=== PATIENT | female | born 1940 | race Caucasian/White ===

== ENCOUNTER → 2016-05-02 | Outpatient (CLI) | payer MEDICARE, OTHER ==
[~2016-05-02] MED LIST: ALDACTONE25 MG PO; ANUSOL SUPP EAC12 EA PR; ATROVENT HFA12.9 GM INH; BENZONATATE200 MG PO; BUMETANIDE2 MG PO; CALCITONIN-SAL3.7 ML; COLACE 100MG C100 MG PO; COREG3.125 MG PO; COUMADIN1 MG PO; COUMADIN6 MG PO; COZAAR25 MG PO; CYCLOBENZAPRINE5 MG PO; ENTRESTO PO; FERROUS SULFAT325 MG PO; FISH OIL 1,0001 EAC1 PO; FLONASE 0.05% N16 GM; IMDUR ER TAB 3030 MG PO; KLOR-CON 1010 MEQ PO; LACTINEX PACKET1 PKT PO; LANOXIN TAB0.125 MG PO; MAG-OX 400 TAB400 MG PO; MIRALAX17 GM PO; MYCOSTATIN100000 UTS PO; NEOMYCIN-POLYMY10 ML OT; NEURONTIN300 MG PO; NITROSTAT0.4 MG SL; NIZORAL 2% CREA15 GM EXT; NORCO 5-325 TA1 EACH PO; OMNICEF 300 MG300 MG PO; PROTONIX 40 MG40 M1 PO; ROBITUSSIN100 MG/5 M PO; SYNTHROID75 MCG PO; TOPROL XL25 MG PO; VENTOLIN/PROVE0.5 ML NEB; VITAMIN B-1000 MCG/M IM; VITAMIN D5000 UNIT PO; ZOFRAN4 MG PO; ZYLOPRIM300 MG PO
== END ==
LOC: HEART 5 13:06
DX: I50.22 Chronic systolic (congestive) heart failure (principal); I25.5 Ischemic cardiomyopathy
CPT/HCPCS: 93306

== ENCOUNTER 2020-03-10 19:56 | Inpatient (IN) | payer MEDICARE, OTHER ==
[~2020-03-10] VITALS: Ht 152.4 cm; Wt 74.8 kg
[~2020-03-10 19:56] MED LIST changes: +AFRIN15 M1; +ASPIRIN EC81 MG PO; -BUMETANIDE2 MG PO; +CLARITIN10 MG PO; +CLEOCIN HCL150 MG PO; +COMBIVENT RESPIM4 GM INH; +COUMADIN5 MG PO; +EAR DROPS15 ML EARBOTH; +ECOTRIN81 MG PO; +FERROUS GLUCON324 M1 PO; +HUMIBID LA TAB600 MG PO; +KEFLEX CAP 500500 MG PO; -LANOXIN TAB0.125 MG PO; +LANOXIN125 MCG PO; +MONTELUKAST SOD10 MG PO; +PREDNISONE20 MG PO; +PRINIVIL10 MG PO; +PROTONIX40 MG PO; -VENTOLIN/PROVE0.5 ML NEB; +VOLTAREN GEL 1% TOP; +WARFARIN SODIUM4 MG PO; +WARFARIN SODIUM5 MG PO; +WARFARIN SODIUM6 MG PO; -ZOFRAN4 MG PO
[2020-03-10 20:39] LABS: HEMOGLOBIN 9.7 gm/dl (12.3-15.3); RED BLOOD COUNT 3.29 M/UL (4.00-5.10); WHITE BLOOD COUNT 8.1 K/UL (4.5-11.0)
[2020-03-10 20:48] LABS: BUN/CREATININE RATIO 52 (0-10)
[2020-03-11 00:43] LABS: HEMOGLOBIN 8.6 gm/dl (12.3-15.3); WHITE BLOOD COUNT 9.1 K/UL (4.5-11.0)
[2020-03-11 00:47] LABS: RED BLOOD COUNT 2.82 M/UL (4.00-5.10)
[2020-03-11] MEDS ORDERED: ZOFRAN4 MG PO (01:53)
[2020-03-11 09:25] LABS: RED BLOOD COUNT 2.3 M/UL (4.00-5.10); WHITE BLOOD COUNT 5.4 K/UL (4.5-11.0)
[2020-03-11 09:27] LABS: HEMOGLOBIN 6.9 gm/dl (12.3-15.3)
[2020-03-11 11:46] LABS: BUN/CREATININE RATIO 65 (0-10)
[2020-03-11] MEDS ORDERED: BUMETANIDE1 MG PO (15:21)
[2020-03-11] MEDS ORDERED: ALDACTONE 25MG25 MG PO (17:20)
[2020-03-11] MEDS ORDERED: CLARITIN10 MG PO (17:24)
[2020-03-11] MEDS ORDERED: GUAIFENESIN400 MG PO (17:32)
[2020-03-11 21:03] LABS: HEMOGLOBIN 8.4 gm/dl (12.3-15.3)
[2020-03-12 22:22] LABS: RED BLOOD COUNT 3.02 M/UL (4.00-5.10); WHITE BLOOD COUNT 9.4 K/UL (4.5-11.0)
[2020-03-13 03:06] LABS: BUN/CREATININE RATIO 49 (0-10)
[2020-03-13 03:19] LABS: HEMOGLOBIN 7.5 gm/dl (12.3-15.3); RED BLOOD COUNT 2.59 M/UL (4.00-5.10); WHITE BLOOD COUNT 7.6 K/UL (4.5-11.0)
[2020-03-13 12:22] LABS: HEMOGLOBIN 8.1 gm/dl (12.3-15.3)
[2020-03-13 19:46] LABS: HEMOGLOBIN 7.3 gm/dl (12.3-15.3)
[2020-03-14 09:55] LABS: HEMOGLOBIN 8.2 gm/dl (12.3-15.3)
[2020-03-14 16:56] LABS: HEMOGLOBIN 7.4 gm/dl (12.3-15.3)
[2020-03-15 02:45] LABS: HEMOGLOBIN 8.6 gm/dl (12.3-15.3)
[2020-03-15 02:46] LABS: RED BLOOD COUNT 2.91 M/UL (4.00-5.10); WHITE BLOOD COUNT 13.5 K/UL (4.5-11.0)
[2020-03-15 03:23] LABS: BUN/CREATININE RATIO 48 (0-10)
[2020-03-15 21:48] LABS: HEMOGLOBIN 6.9 gm/dl (12.3-15.3)
[2020-03-16 05:55] LABS: HEMOGLOBIN 7.2 gm/dl (12.3-15.3)
[2020-03-16 05:59] LABS: RED BLOOD COUNT 2.37 M/UL (4.00-5.10); WHITE BLOOD COUNT 8.7 K/UL (4.5-11.0)
[2020-03-16 06:07] LABS: BUN/CREATININE RATIO 39 (0-10)
[2020-03-17 02:31] LABS: HEMOGLOBIN 8.3 gm/dl (12.3-15.3)
[2020-03-17 02:35] LABS: RED BLOOD COUNT 2.75 M/UL (4.00-5.10)
[2020-03-17 02:56] LABS: BUN/CREATININE RATIO 42 (0-10)
[2020-03-18 03:08] LABS: HEMOGLOBIN 7.5 gm/dl (12.3-15.3); RED BLOOD COUNT 2.45 M/UL (4.00-5.10); WHITE BLOOD COUNT 7.9 K/UL (4.5-11.0)
[2020-03-18 03:24] LABS: BUN/CREATININE RATIO 38 (0-10)
[2020-03-19 02:29] LABS: HEMOGLOBIN 7.8 gm/dl (12.3-15.3); RED BLOOD COUNT 2.59 M/UL (4.00-5.10); WHITE BLOOD COUNT 8.2 K/UL (4.5-11.0)
[2020-03-20 02:51] LABS: HEMOGLOBIN 7.5 gm/dl (12.3-15.3); RED BLOOD COUNT 2.5 M/UL (4.00-5.10); WHITE BLOOD COUNT 6.9 K/UL (4.5-11.0)
[2020-03-21 12:00] LABS: RED BLOOD COUNT 2.65 M/UL (4.00-5.10); WHITE BLOOD COUNT 7.5 K/UL (4.5-11.0)
[2020-03-22 04:41] LABS: HEMOGLOBIN 7.3 gm/dl (12.3-15.3); RED BLOOD COUNT 2.44 M/UL (4.00-5.10); WHITE BLOOD COUNT 8.7 K/UL (4.5-11.0)
[2020-03-22 05:04] LABS: BUN/CREATININE RATIO 24 (0-10)
[2020-03-23 03:02] LABS: BUN/CREATININE RATIO 33 (0-10)
[2020-03-24 06:16] LABS: HEMOGLOBIN 8.1 gm/dl (12.3-15.3); RED BLOOD COUNT 2.68 M/UL (4.00-5.10); WHITE BLOOD COUNT 7.3 K/UL (4.5-11.0)
[2020-03-24 06:44] LABS: BUN/CREATININE RATIO 30 (0-10)
[2020-03-24] MEDS ORDERED: MONTELUKAST SOD10 MG PO (08:57)
[2020-03-24] MEDS ORDERED: ANUSOL HC SUPP1 SUPP PR (08:57)
[2020-03-24] MEDS ORDERED: MAGIC MOUTHWASH PO (08:59)
[2020-03-25 04:09] LABS: HEMOGLOBIN 8.2 gm/dl (12.3-15.3); RED BLOOD COUNT 2.73 M/UL (4.00-5.10); WHITE BLOOD COUNT 8.9 K/UL (4.5-11.0)
[2020-03-25 04:41] LABS: BUN/CREATININE RATIO 45 (0-10)
[2020-03-26 05:14] LABS: HEMOGLOBIN 7.8 gm/dl (12.3-15.3); RED BLOOD COUNT 2.61 M/UL (4.00-5.10)
[2020-03-26 05:21] LABS: WHITE BLOOD COUNT 6.5 K/UL (4.5-11.0)
[2020-03-26 05:40] LABS: BUN/CREATININE RATIO 46 (0-10)
[2020-03-27] MEDS ORDERED: NASA MIST SALI177 ML (13:36)
[2020-03-27] MEDS ORDERED: BENZONATATE100 MG PO (13:36)
== END 2020-03-27 21:20 | DRG 377 ==
LOC: ER1 19:56 → MED SURG 4 03-11 01:33 → PROG CARE 03-11 01:33 → CDU 03-11 01:33 → PROG CARE 03-12 13:57 → MED SURG 4 03-20 14:02
PROVIDERS: Internal Medicine; Internal Medicine Infectious Disease; Physician Assistant; ADMIT Internal Medicine
PROC: 30233N1 Transfusion of Nonautologous Red Blood Cells into Peripheral Vein, Percutaneous Approach (ICD-10-PCS; 2020-03-11)
PROC: 30233K1 Transfusion of Nonautologous Frozen Plasma into Peripheral Vein, Percutaneous Approach (ICD-10-PCS; 2020-03-12)
PROC: 30233N1 Transfusion of Nonautologous Red Blood Cells into Peripheral Vein, Percutaneous Approach (ICD-10-PCS; 2020-03-12)
PROC: 30233K1 Transfusion of Nonautologous Frozen Plasma into Peripheral Vein, Percutaneous Approach (ICD-10-PCS; 2020-03-13)
PROC: 30233N1 Transfusion of Nonautologous Red Blood Cells into Peripheral Vein, Percutaneous Approach (ICD-10-PCS; 2020-03-13)
PROC: 30233N1 Transfusion of Nonautologous Red Blood Cells into Peripheral Vein, Percutaneous Approach (ICD-10-PCS; 2020-03-14)
PROC: 30233N1 Transfusion of Nonautologous Red Blood Cells into Peripheral Vein, Percutaneous Approach (ICD-10-PCS; 2020-03-16)
PROC: B24BZZZ Ultrasonography of Heart with Aorta (ICD-10-PCS; principal; 2020-03-17)
DX: K57.31 Diverticulosis of large intestine without perforation or abscess with bleeding (principal); I50.23 Acute on chronic systolic (congestive) heart failure; D62 Acute posthemorrhagic anemia; J96.11 Chronic respiratory failure with hypoxia; Z20.822 Contact with and (suspected) exposure to COVID-19; I11.0 Hypertensive heart disease with heart failure; R55 Syncope and collapse; I25.119 Atherosclerotic heart disease of native coronary artery with unspecified angina pectoris; R07.89 Other chest pain; I95.9 Hypotension, unspecified; E86.1 Hypovolemia; Z66 Do not resuscitate; I25.5 Ischemic cardiomyopathy; I48.0 Paroxysmal atrial fibrillation; E78.5 Hyperlipidemia, unspecified; E03.9 Hypothyroidism, unspecified; K21.9 Gastro-esophageal reflux disease without esophagitis; F41.9 Anxiety disorder, unspecified; E66.01 Morbid (severe) obesity due to excess calories; J30.9 Allergic rhinitis, unspecified; D50.9 Iron deficiency anemia, unspecified; Z95.5 Presence of coronary angioplasty implant and graft; Z90.49 Acquired absence of other specified parts of digestive tract; Z90.710 Acquired absence of both cervix and uterus; Z95.2 Presence of prosthetic heart valve; Z95.810 Presence of automatic (implantable) cardiac defibrillator; Z88.0 Allergy status to penicillin; Z88.8 Allergy status to other drugs, medicaments and biological substances; Z82.49 Family history of ischemic heart disease and other diseases of the circulatory system; I25.2 Old myocardial infarction; Z79.01 Long term (current) use of anticoagulants; Z79.890 Hormone replacement therapy; Z79.899 Other long term (current) drug therapy; Z68.32 Body mass index [BMI] 32.0-32.9, adult
CPT/HCPCS: 36415; 36430; 70486; 71045; 74230; 80048; 80053; 80162; 81001; 82272; 82550; 82553; 83605; 83735; 83874; 83880; 84484; 85014; 85018; 85025; 85027; 85610; 85730; 86850; 86900; 86901; 86920; 86927; 87086; 92610; 92611-GN; 93005; 94640; 94664; 94760; 96372; 96374; 96375; 96376; 97110; 97162; 97166; 97530; 97530-GP-CQ; 99285; C9113; G0378; J1756; J1940; J2405; J3430; J7050; P9016; P9017; U0002

== ENCOUNTER 2020-04-17 12:36 | Emergency (ER) | payer MEDICARE, OTHER ==
[~2020-04-17 12:36] MED LIST changes: +ALDACTONE 25MG25 MG PO; +ANUSOL HC SUPP1 SUPP PR; +BENZONATATE100 MG PO; +BUMETANIDE1 MG PO; +GUAIFENESIN400 MG PO; +MAGIC MOUTHWASH PO; +NASA MIST SALI177 ML; +ZOFRAN4 MG PO
[2020-04-17 15:01] LABS: HEMOGLOBIN 8.9 gm/dl (12.3-15.3); RED BLOOD COUNT 3.03 M/UL (4.00-5.10); WHITE BLOOD COUNT 4.9 K/UL (4.5-11.0)
[2020-04-17 15:17] LABS: BUN/CREATININE RATIO 48 (0-10)
== END 2020-04-17 18:33 | disposition home or self-care (01) ==
LOC: ER1 12:36
PROVIDERS: Physician Assistant
DX: K92.2 Gastrointestinal hemorrhage, unspecified (principal); R60.0 Localized edema; I10 Essential (primary) hypertension; Z88.0 Allergy status to penicillin; Z91.040 Latex allergy status; Z95.1 Presence of aortocoronary bypass graft; Z90.49 Acquired absence of other specified parts of digestive tract
CPT/HCPCS: 71045; 80053; 81001; 82270; 82550; 82553; 83874; 83880; 84484; 85025; 85610; 85730; 93005; 94664; 99284

== ENCOUNTER 2020-05-23 08:06 | Emergency (ER) | payer MEDICARE, OTHER ==
[~2020-05-23] VITALS: Ht 162.6 cm; Wt 73.5 kg
[2020-05-23 10:08] LABS: HEMOGLOBIN 10.9 gm/dl (12.3-15.3); RED BLOOD COUNT 3.7 M/UL (4.00-5.10); WHITE BLOOD COUNT 5.7 K/UL (4.5-11.0)
[2020-05-23 10:30] LABS: BUN/CREATININE RATIO 50 (0-10)
[2020-05-23] MEDS ORDERED: LISINOPRIL2.5 MG PO (12:14)
[2020-05-23] MEDS ORDERED: JANTOVEN5 MG PO (12:30)
[2020-05-23] MEDS ORDERED: JANTOVEN6 MG PO (12:31)
[2020-05-23] MEDS ORDERED: NYSTATIN15 GM TP (14:14)
[2020-05-23] MEDS ORDERED: ALDACTONE 25MG25 MG PO (14:15)
[2020-05-23] MEDS ORDERED: PROVENTIL HFA6.7 GM INH (15:19)
[2020-05-23 16:36] LABS: HEMOGLOBIN 9.9 gm/dl (12.3-15.3); RED BLOOD COUNT 3.35 M/UL (4.00-5.10); WHITE BLOOD COUNT 4.9 K/UL (4.5-11.0)
== END 2020-05-24 04:06 | disposition home or self-care (01) ==
LOC: ER1 08:06
PROVIDERS: Student in an Organized Health Care Education/Training Program
DX: D64.9 Anemia, unspecified (principal); N39.0 Urinary tract infection, site not specified; K62.5 Hemorrhage of anus and rectum; I50.9 Heart failure, unspecified; Z20.822 Contact with and (suspected) exposure to COVID-19; Z95.1 Presence of aortocoronary bypass graft; Z90.710 Acquired absence of both cervix and uterus; Z88.0 Allergy status to penicillin
CPT/HCPCS: 0240U; 71045; 80053; 81001; 82550; 82553; 83605; 83690; 83735; 83874; 83880; 84100; 84484; 85018; 85025; 85610; 85652; 85730; 86140; 86850; 86900; 86901; 87040; 94664; 99285; J0696; J2270; J2405

== ENCOUNTER 2020-09-19 18:20 | Emergency (ER) | payer MEDICARE, OTHER ==
[~2020-09-19 18:20] MED LIST changes: +JANTOVEN5 MG PO; +JANTOVEN6 MG PO; +LISINOPRIL2.5 MG PO; +NYSTATIN15 GM TP; +PROVENTIL HFA6.7 GM INH
[2020-09-19 20:05] LABS: HEMOGLOBIN 10.9 gm/dl (12.3-15.3); RED BLOOD COUNT 3.82 M/UL (4.00-5.10); WHITE BLOOD COUNT 8.3 K/UL (4.5-11.0)
[2020-09-19 20:10] LABS: BUN/CREATININE RATIO 36 (0-10)
[2020-09-20] MEDS ORDERED: DELSYM30 MG/5 ML PO (00:24)
[2020-09-20] MEDS ORDERED: ZYRTEC10 MG PO (00:24)
[2020-09-20] MEDS ORDERED: Voltaren Gel 1 % TOP (00:24)
== END 2020-09-20 01:00 | disposition home or self-care (01) ==
LOC: ER1 18:20
PROVIDERS: Physician Assistant Medical
DX: S22.038A Other fracture of third thoracic vertebra, initial encounter for closed fracture (principal); I50.9 Heart failure, unspecified; D64.9 Anemia, unspecified; Z20.822 Contact with and (suspected) exposure to COVID-19; Z88.0 Allergy status to penicillin; Z88.5 Allergy status to narcotic agent; Z79.899 Other long term (current) drug therapy; X58.XXXA Exposure to other specified factors, initial encounter
CPT/HCPCS: 71045; 71250; 72072; 80053; 81001; 82550; 82553; 83874; 84484; 85025; 93005; 99284; U0002

== ENCOUNTER 2020-09-23 10:33 | Emergency (ER) | payer MEDICARE, OTHER ==
[~2020-09-23 10:33] MED LIST changes: +DELSYM30 MG/5 ML PO; +Voltaren Gel 1 % TOP; +ZYRTEC10 MG PO
[2020-09-23 11:33] LABS: HEMOGLOBIN 11.8 gm/dl (12.3-15.3); RED BLOOD COUNT 4.15 M/UL (4.00-5.10); WHITE BLOOD COUNT 6.9 K/UL (4.5-11.0)
[2020-09-23 11:49] LABS: BUN/CREATININE RATIO 47 (0-10)
[2020-09-23] MEDS ORDERED: LEVOFLOXACIN750 MG PO (16:21)
[2020-09-23] MEDS ORDERED: ZOFRAN ODT 4 MG4 MG PO (16:21)
[2020-09-23] MEDS ORDERED: FLAGYL500 MG PO (16:21)
[2020-09-23] MEDS ORDERED: BACTRIM DS TAB1 EACH PO (16:34)
[2020-09-23] MEDS ORDERED: BENTYL 10MG CAP10 MG PO (16:34)
== END 2020-09-23 17:50 | disposition home or self-care (01) ==
LOC: ER1 10:33
PROVIDERS: Emergency Medicine
DX: K52.9 Noninfective gastroenteritis and colitis, unspecified (principal); I11.0 Hypertensive heart disease with heart failure; I50.9 Heart failure, unspecified; J44.9 Chronic obstructive pulmonary disease, unspecified; Z20.822 Contact with and (suspected) exposure to COVID-19
CPT/HCPCS: 71045; 80053; 81001; 82550; 82553; 83605; 83690; 84484; 85025; 93005; 96374; 96375; 99285; J2270; J2405; U0002

== ENCOUNTER 2020-09-29 09:52 | Inpatient (IN) | payer MEDICARE, OTHER ==
[~2020-09-29] VITALS: Ht 162.6 cm; Wt 74.8 kg
[~2020-09-29 09:52] MED LIST changes: +BACTRIM DS TAB1 EACH PO; +BENTYL 10MG CAP10 MG PO; +FLAGYL500 MG PO; +LEVOFLOXACIN750 MG PO; +ZOFRAN ODT 4 MG4 MG PO
[2020-09-29 11:07] LABS: BUN/CREATININE RATIO 31 (0-10)
[2020-09-29 11:10] LABS: HEMOGLOBIN 12.1 gm/dl (12.3-15.3); RED BLOOD COUNT 4.16 M/UL (4.00-5.10); WHITE BLOOD COUNT 7.5 K/UL (4.5-11.0)
[2020-09-30 02:13] LABS: HEMOGLOBIN 11.8 gm/dl (12.3-15.3); RED BLOOD COUNT 3.98 M/UL (4.00-5.10)
[2020-09-30 02:36] LABS: BUN/CREATININE RATIO 39 (0-10)
[2020-10-01 10:08] LABS: BUN/CREATININE RATIO 43 (0-10)
[2020-10-01 12:12] LABS: HEMOGLOBIN 10.9 gm/dl (12.3-15.3); RED BLOOD COUNT 3.71 M/UL (4.00-5.10); WHITE BLOOD COUNT 4.5 K/UL (4.5-11.0)
[2020-10-02 06:23] LABS: RED BLOOD COUNT 3.72 M/UL (4.00-5.10); WHITE BLOOD COUNT 3.8 K/UL (4.5-11.0)
[2020-10-02 07:07] LABS: BUN/CREATININE RATIO 33 (0-10)
[2020-10-03 10:24] LABS: HEMOGLOBIN 12.5 gm/dl (12.3-15.3)
[2020-10-03 10:28] LABS: RED BLOOD COUNT 4.2 M/UL (4.00-5.10); WHITE BLOOD COUNT 4.8 K/UL (4.5-11.0)
[2020-10-03 10:42] LABS: BUN/CREATININE RATIO 28 (0-10)
[2020-10-04 05:13] LABS: HEMOGLOBIN 12.3 gm/dl (12.3-15.3); RED BLOOD COUNT 4.16 M/UL (4.00-5.10); WHITE BLOOD COUNT 3.8 K/UL (4.5-11.0)
[2020-10-04 05:46] LABS: BUN/CREATININE RATIO 30 (0-10)
[2020-10-04 09:41] LABS: HEMOGLOBIN 12.5 gm/dl (12.3-15.3); RED BLOOD COUNT 4.16 M/UL (4.00-5.10)
[2020-10-04 09:55] LABS: WHITE BLOOD COUNT 4.9 K/UL (4.5-11.0)
[2020-10-05 06:40] LABS: HEMOGLOBIN 12.9 gm/dl (12.3-15.3); RED BLOOD COUNT 4.31 M/UL (4.00-5.10)
[2020-10-05 07:16] LABS: BUN/CREATININE RATIO 40 (0-10)
[2020-10-06 07:11] LABS: HEMOGLOBIN 13.1 gm/dl (12.3-15.3); RED BLOOD COUNT 4.37 M/UL (4.00-5.10)
[2020-10-06 07:18] LABS: WHITE BLOOD COUNT 6.4 K/UL (4.5-11.0)
[2020-10-06 07:34] LABS: BUN/CREATININE RATIO 38 (0-10)
[2020-10-07 06:52] LABS: HEMOGLOBIN 12.8 gm/dl (12.3-15.3); RED BLOOD COUNT 4.32 M/UL (4.00-5.10); WHITE BLOOD COUNT 5.9 K/UL (4.5-11.0)
[2020-10-07 07:20] LABS: BUN/CREATININE RATIO 42 (0-10)
[2020-10-08 09:39] LABS: HEMOGLOBIN 12.9 gm/dl (12.3-15.3); RED BLOOD COUNT 4.31 M/UL (4.00-5.10)
[2020-10-08 09:40] LABS: WHITE BLOOD COUNT 9.2 K/UL (4.5-11.0)
[2020-10-08 10:11] LABS: BUN/CREATININE RATIO 49 (0-10)
--- NOTE | 2020-10-08 15:13 | NUR ---
TELEMETRY CALLED TO NOTIFY PATIENT HAD 8 BEAT RUN OFV-TACH PROVIDER NOTIFIED AND ORDERED EKG 12 LEAD, CARDIAC SCREEN, CMP, MAG AND PHOSPHOROUS LABS. WILL CONTINUE TO MONITOR.
[2020-10-08 16:42] LABS: BUN/CREATININE RATIO 48 (0-10)
[2020-10-09 09:36] LABS: RED BLOOD COUNT 4.06 M/UL (4.00-5.10); WHITE BLOOD COUNT 9.1 K/UL (4.5-11.0)
[2020-10-09 09:48] LABS: BUN/CREATININE RATIO 45 (0-10)
[2020-10-10 07:49] LABS: HEMOGLOBIN 12.9 gm/dl (12.3-15.3); RED BLOOD COUNT 4.34 M/UL (4.00-5.10); WHITE BLOOD COUNT 8.6 K/UL (4.5-11.0)
[2020-10-10 08:30] LABS: BUN/CREATININE RATIO 48 (0-10)
[2020-10-11 10:05] LABS: HEMOGLOBIN 12.6 gm/dl (12.3-15.3); RED BLOOD COUNT 4.23 M/UL (4.00-5.10); WHITE BLOOD COUNT 7.3 K/UL (4.5-11.0)
[2020-10-11 10:18] LABS: BUN/CREATININE RATIO 54 (0-10)
[2020-10-12 06:58] LABS: HEMOGLOBIN 12.5 gm/dl (12.3-15.3); RED BLOOD COUNT 4.22 M/UL (4.00-5.10)
[2020-10-12 07:24] LABS: BUN/CREATININE RATIO 47 (0-10)
[2020-10-13 06:48] LABS: HEMOGLOBIN 13.1 gm/dl (12.3-15.3); RED BLOOD COUNT 4.4 M/UL (4.00-5.10); WHITE BLOOD COUNT 7.9 K/UL (4.5-11.0)
[2020-10-13 07:14] LABS: BUN/CREATININE RATIO 53 (0-10)
[2020-10-14 10:18] LABS: HEMOGLOBIN 12.7 gm/dl (12.3-15.3); RED BLOOD COUNT 4.18 M/UL (4.00-5.10)
[2020-10-14 10:53] LABS: BUN/CREATININE RATIO 70 (0-10)
[2020-10-15 09:27] LABS: HEMOGLOBIN 11.4 gm/dl (12.3-15.3); RED BLOOD COUNT 3.93 M/UL (4.00-5.10); WHITE BLOOD COUNT 9.2 K/UL (4.5-11.0)
[2020-10-15 09:57] LABS: BUN/CREATININE RATIO 85 (0-10)
[2020-10-16 04:28] LABS: HEMOGLOBIN 11.1 gm/dl (12.3-15.3); RED BLOOD COUNT 3.75 M/UL (4.00-5.10)
[2020-10-16 04:36] LABS: WHITE BLOOD COUNT 6.8 K/UL (4.5-11.0)
[2020-10-16 04:58] LABS: BUN/CREATININE RATIO 65 (0-10)
[2020-10-17 17:25] LABS: HEMOGLOBIN 10.3 gm/dl (12.3-15.3); RED BLOOD COUNT 3.68 M/UL (4.00-5.10); WHITE BLOOD COUNT 8.1 K/UL (4.5-11.0)
[2020-10-17 17:48] LABS: BUN/CREATININE RATIO 61 (0-10)
[2020-10-18 06:40] LABS: RED BLOOD COUNT 3.51 M/UL (4.00-5.10); WHITE BLOOD COUNT 7.1 K/UL (4.5-11.0)
[2020-10-18 06:59] LABS: BUN/CREATININE RATIO 63 (0-10)
[2020-10-19 06:33] LABS: HEMOGLOBIN 9.7 gm/dl (12.3-15.3); RED BLOOD COUNT 3.42 M/UL (4.00-5.10); WHITE BLOOD COUNT 6.8 K/UL (4.5-11.0)
[2020-10-19 06:51] LABS: BUN/CREATININE RATIO 60 (0-10)
[2020-10-20 07:54] LABS: HEMOGLOBIN 9.8 gm/dl (12.3-15.3); RED BLOOD COUNT 3.44 M/UL (4.00-5.10); WHITE BLOOD COUNT 8.3 K/UL (4.5-11.0)
[2020-10-20 08:13] LABS: BUN/CREATININE RATIO 48 (0-10)
--- NOTE | 2020-10-20 13:00 | NUR ---
RN SPOKE WITH INFECTION CONTROL NURSE RAMÓN. RN INFORMED HER THAT 21 DAYS HAD PASSED SINCE PATIENT'S FIRST POSITIVE COVID SWAB AND ASKED IF PATIENT COULD LIFT ISOLATION. RAMÓN STATED LONG PATIENT WAS AFEBRILE AND DISPLAYED SIGNS OF IMPROVEMENT, ISOLATION COULD BE LIFTED WITH MD ORDER. RN NOTIFIED DR. MARTINEZ WHO ORDERED PATIENT TO BE PLACED ON STANDARD ISOLATION.
[2020-10-21 04:51] LABS: HEMOGLOBIN 9.4 gm/dl (12.3-15.3); RED BLOOD COUNT 3.28 M/UL (4.00-5.10); WHITE BLOOD COUNT 7.9 K/UL (4.5-11.0)
[2020-10-21 05:13] LABS: BUN/CREATININE RATIO 48 (0-10)
[2020-10-21 11:22] LABS: ADENOVIRUS F 40/41 Not Detected (Negative); ASTROVIRUS Not Detected (Negative); CAMPYLOBACTER Not Detected (Negative); CLOSTRIDIUM DIFFICILE TOX A/B Not Detected (Negative); CRYPTOSPORIDIUM Not Detected (Negative); E.COLI 0157 Not Detected (Negative); ENTAMOEBA HISTOLYTICA Not Detected (Negative); ENTEROAGGREGATIVE E.COLI (EAEC Not Detected (Negative); ENTEROPATHOGENIC E.COLI (EPEC) Not Detected (Negative); ENTEROTOXIGENIC E.COLI (ETEC) Not Detected (Negative); GIARDIA LAMBLIA Not Detected (Negative); NOROVIRUS GI/GII Not Detected (Negative); PLESIOMONAS SHIGELLOIDES Not Detected (Negative); ROTOVIRUS A Not Detected (Negative); SALMONELLA Not Detected (Negative); SAPOVIRUS Not Detected (Negative); SHIG/ENTEROINVAS.ECOLI (EIEC) Not Detected (Negative); SHIGA-LIK TOX.PRO.E.COLI (STEC Not Detected (Negative); VIBRIO Not Detected (Negative); VIBRIO CHOLERAE Not Detected (Negative); YERSINIA ENTEROCOLITICA Not Detected (Negative)
--- NOTE | 2020-10-21 19:04 | NUR ---
RN NOTIFIED MD OF PATIENT'S LAST INR LEVEL AND PATIENT'S CONCERN THAT IT WAS LESS THAN HER "USUAL RANGE" OF 2-3. MD STATED THAT IT WOULD BE FINE FOR PATIENT TO GO TO REHAB AND THAT HER MEDICATIONS WOULD BE ADJUSTED THERE. RN NOTIFIED PATIENT.
--- NOTE | 2020-10-21 19:45 | NUR ---
REPORT CALLED TO [facility] [place].
== END 2020-10-21 21:10 | DRG 177 ==
LOC: ER1 09:52 → CDU 18:29 → MED SURG 4 18:29
PROVIDERS: Internal Medicine; Physician Assistant; ADMIT Internal Medicine
PROC: XW033E5 Introduction of Remdesivir Anti-infective into Peripheral Vein, Percutaneous Approach, New Technology Group 5 (ICD-10-PCS; principal; 2020-09-29)
PROC: 3E0333Z Introduction of Anti-inflammatory into Peripheral Vein, Percutaneous Approach (ICD-10-PCS; 2020-09-29)
PROC: 8E0ZXY6 Isolation (ICD-10-PCS; 2020-09-30)
DX: U07.1 COVID-19 (principal); J12.82 Pneumonia due to coronavirus disease 2019; J96.01 Acute respiratory failure with hypoxia; J96.02 Acute respiratory failure with hypercapnia; J15.9 Unspecified bacterial pneumonia; J69.0 Pneumonitis due to inhalation of food and vomit; G93.41 Metabolic encephalopathy; I50.22 Chronic systolic (congestive) heart failure; M48.54XA Collapsed vertebra, not elsewhere classified, thoracic region, initial encounter for fracture; Z66 Do not resuscitate; E03.9 Hypothyroidism, unspecified; D50.9 Iron deficiency anemia, unspecified; J30.9 Allergic rhinitis, unspecified; K21.9 Gastro-esophageal reflux disease without esophagitis; F03.90 Unspecified dementia, unspecified severity, without behavioral disturbance, psychotic disturbance, mood disturbance, and anxiety; I11.0 Hypertensive heart disease with heart failure; E53.8 Deficiency of other specified B group vitamins; R79.1 Abnormal coagulation profile; E78.5 Hyperlipidemia, unspecified; I25.5 Ischemic cardiomyopathy; I48.0 Paroxysmal atrial fibrillation; I07.1 Rheumatic tricuspid insufficiency; I27.20 Pulmonary hypertension, unspecified; R53.81 Other malaise; K52.9 Noninfective gastroenteritis and colitis, unspecified; F41.9 Anxiety disorder, unspecified; I25.10 Atherosclerotic heart disease of native coronary artery without angina pectoris; Z95.5 Presence of coronary angioplasty implant and graft; I25.2 Old myocardial infarction; Z99.81 Dependence on supplemental oxygen; Z79.01 Long term (current) use of anticoagulants; Z95.2 Presence of prosthetic heart valve; Z87.440 Personal history of urinary (tract) infections; Z82.49 Family history of ischemic heart disease and other diseases of the circulatory system; Z83.3 Family history of diabetes mellitus; Z95.1 Presence of aortocoronary bypass graft
CPT/HCPCS: 36415; 36600; 51701; 70450; 71045; 76705; 80048; 80053; 81001; 82140; 82550; 82553; 82803; 83605; 83735; 83874; 83880; 84100; 84132; 84484; 85025; 85027; 85610; 85730; 86140; 87070; 87507; 93005; 94640; 94660; 94664; 94760; 96374; 96375; 97110; 97110-GP-CQ; 97116; 97116-GP-CQ; 97163; 97166; 97530; 97530-GP-CQ; 97535; 99285; G0378; J1100; J1335; J1644; J1650; J2060; J2270; J2405; J3420; J3486; J7030; U0002; U0003